=== PATIENT | female | born 1955 | race Caucasian/White ===

== ENCOUNTER 2018-08-25 14:26 | Emergency (ER) | payer BC, SELFPAY ==
--- NOTE | 2018-08-25 14:37 | NUR.NOTE ---
pt states that she developed a scratchy feeling in her that at approximately 0900 at which point she took some Benadryl because she thought she might be having an allergic reaction approximately 5 min after taking liquid Benadryl the PT vomited. pt is here because she wants to get checked out currently presents with no signs or symptoms of an allelic reaction or nausea
[2018-08-25 14:41] VITALS: BP 153/81; PULSE 82; RESP 15; TEMP 36.8; O2SAT 96
--- NOTE | 2018-08-25 15:50 | ED.GENADUL_ITS ---
Discharge Plan Disposition Patient Disposition: HOME Condition: Stable Discharge Details Chief Complaint: GenMedical Clinical Impression: Allergic reaction Primary Care Provider: Guevara Harris ED Provider: Ngoc Moore Home Meds and New Rx's Prescriptions: New prednisone 20 mg tablet 20 mg PO DAILY Qty: 12 RF: 0 amlodipine 5 mg tablet 5 mg PO DAILY Qty: 30 RF: 0 Continued pravastatin 20 mg Tablet 20 mg PO DAILY RF: 0 Discontinued lisinopril 10 mg Tablet 10 mg PO DAILY RF: 0 Discharge Instructions Instructions: General Allergic Reaction (ED) Additional Instructions: It is possible that your allergic reaction was due to something you ate. There is also a possibility that your allergic reaction is due to the lisinopril that you have been taking. The usual serious allergic reaction with lisinopril can occur at any point in time while taking it, and is usually tongue or lip swelling. It seems most likely that your allergic reaction was due to something you ate. However, due to the risk of an allergic reaction with lisinopril, I recommend that you stop taking it. We will start you on amlodipine for the time being. Call your primary care doctor on Monday morning to schedule follow-up appointment for reevaluation and to determine whether you should continue taking amlodipine or switch to another antihypertensive medication. Take Benadryl as needed and directed for any itching. Return immediately to the emergency department any worsening or new concerning symptoms. Discharge Data Discharge Date/Time-TO BE ENTERED AT DEPARTURE: 08/25/18 17:15 Discharge Physician: Ngoc Moore Medical Decision Making 1430 -- 62yo F with a history of hypertension and high cholesterol who presents with possible allergic reaction after eating breakfast at a local caf? 5 hours ago. She admits to a sensation of difficulty swallowing, nausea, shaking and dizziness. She took Benadryl and states her symptoms are 50-75% better. Vitals within normal limits. Patient appears nontoxic. Normal ENT exam. No drooling, no trismus, no submandibular swelling. Lungs clear to auscultation. Abdomen soft and nontender. Patient also has taken lisinopril for the past 30 years. She has no tongue or lip swelling, so this appears unlikely to be the source as her symptoms started after eating and does not appear c/w angioedema. Due to the concern of airway involvement if it is due to the lisinopril, patient is recommended to stop taking this. Will place an IV, bolus IV fluids, Solu-Medrol, Benadryl and will reassess. 1700 -- Patient reassessed and feels completely better. She denies any throat or respiratory symptoms. She is requesting to go home. Patient instructed to stop the lisinopril. Will give a prescription for amlodipine for her blood pressure. She is instructed to call her primary care doctor Monday morning to schedule a follow-up appointment for reevaluation and to discuss continued treatment of her hypertension. She states she has taken amlodipine in the past. She is instructed to drink plenty of fluids, take the steroids until finished and take benadryl as needed and directed for itching. She is instructed to return here immediately with any worsening symptoms. HPI General Mode of arrival: ambulatory . Date/Time Provider Initiated Documentation: 08/25/18 15:26 . Limitations to Documentation: no limitations . Information obtained by: patient . HPI Narrative: Patient is a 62-year-old female who presents the ED with a complaint of possible allergic reaction. She states she ate breakfast this morning approximately 5 hours ago and approximately 20 minutes later she felt like she was having a hard time swallowing. She states she went to a local pharmacy and discussed with the pharmacist there and they advised her to take Benadryl. She states she drank approximately 20 mL of children's Benadryl. She states she vomited shortly after taking this but she is unsure if any of it got absorbed. She states she ate eggs, haas, home fries and states she never had eaten at this cafe in [place] before. She states she also felt her body shaking and some nausea and dizziness. She states she feels approximately 50-75% better. She denies any shortness of breath or wheezing. She states she also takes lisinopril for the past 30 years but denies any tongue or lip swelling. She denies any vomiting or abdominal pain. Related Data Home Medications Medication Instructions Recorded Confirmed amlodipine 5 mg PO DAILY #30 tab 08/25/18 pravastatin 20 mg PO DAILY 08/25/18 08/25/18 prednisone 20 mg PO DAILY #12 tab 08/25/18 Previous Rx's Medication Instructions Recorded amlodipine 5 mg PO DAILY #30 tab 08/25/18 prednisone 20 mg PO DAILY #12 tab 08/25/18 Allergies Allergy/AdvReac Type Severity Reaction Status Date / Time No Known Allergies Allergy Unverified 08/25/18 14:42 General Stated Complaint: GenMedical JULIA: 4 Review of Systems Review of Systems All systems reviewed & are unremarkable except as noted in HPI and below Constitutional Reports as per HPI, Denies chills, Denies fever(s) and Reports other (body shaking) Eyes Denies blurry vision ENT Reports dizziness, Denies sore throat, Reports throat swelling and Denies tongue swelling Cardiovascular Denies chest pain and Denies dyspnea Respiratory Denies cough and Denies dyspnea Gastrointestinal Denies abdominal pain, Denies diarrhea, Reports nausea and Reports vomiting Genitourinary Denies hematuria and Denies dysuria Musculoskeletal Denies back pain and Denies numbness Integumentary/Breasts Denies lesions and Denies rash Neurologic Reports dizziness, Denies focal weakness and Denies numbness Allergic/Immunologic Reports throat swelling and Denies tongue swelling [facility] Medical History Hyperlipemia (Acute) HTN (hypertension) (Chronic) Surgical History History of bilateral tubal ligation (Acute) Social History Smoking/Tobacco Use Status: Never Alcohol Intake: current Alcohol Intake frequency: 0-2 drinks per day Drug use: Never Substance use type: does not use Do you feel safe at home: Yes Do you feel safe in your relationship?: Yes Exam Const General: cooperative, healthy appearing and no acute distress HENMT Head: normal to inspection Ears: hearing grossly normal bilaterally, external ears normal and TM's normal bilaterally General nose exam: external nose normal Face and sinus: normal facial exam Mouth: oral mucosae normal, tongue normal, no drooling and no trismus Teeth and gingiva: dentition normal Throat: posterior oropharynx normal Eyes General: appearance normal, both eyes and all related structures Pupils: PERRL EOM: EOM intact bilaterally Neck Neck: normal visual inspection and No submandibular swelling Lymphatic: no lymphadenopathy noted Chest Chest: normal inspection of the chest and no tenderness Resp Effort & Inspection: normal respiratory effort and able to speak in complete sentences Auscultation: clear to auscultation bilaterally Cardio Rate: regular rate Rhythm: regular rhythm GI Inspection: normal to inspection Palpation: soft, not firm, not rigid and nontender Auscultation: normal bowel sounds Skin General skin exam: no rashes or lesions noted Neuro General: alert, awake and oriented x3 Cognition: normal cognition Speech: speech normal Motor: muscle tone normal throughout Sensory Exam: no sensory deficits noted Extrem General: normal to inspection, full ROM and no edema Psych Appearance: grossly normal Mental Status: mental status grossly normal Speech and Movement: speech and movement normal Affect: normal affect Course Vital Signs Temperature 98.2 F 08/25/18 14:41 Pulse 82 08/25/18 14:41 Respiratory Rate 15 08/25/18 14:41 Blood Pressure 153/81 H 08/25/18 14:41 Pulse Oximetry 96 08/25/18 14:41 Temperature 98.2 F 08/25/18 14:41 Temperature Source Skin 08/25/18 14:41 Pulse 82 08/25/18 14:41 Respiratory Rate 15 08/25/18 14:41 Respiratory Effort 08/25/18 14:44 Blood Pressure 153/81 H 08/25/18 14:41 Blood Pressure Position Sitting 08/25/18 14:41 Pulse Oximetry 96 08/25/18 14:41 Oxygen Delivery Method Room Air 08/25/18 14:41 Oxygen Flow Rate 0 08/25/18 14:41 Pain Level 0 08/25/18 14:41
[2018-08-25] MEDS: diphenhydrAMINE 50 MG/ML VIAL 25 MG IVP (15:58)
[2018-08-25] MEDS: methylPREDNISolone SUCC 125 MG VIAL IVP (15:59)
[2018-08-25] MEDS: Normal Saline 1,000 ML 1000 ML IV (15:59)
== END 2018-08-25 17:15 | disposition home or self-care (01) ==
PROVIDERS: Emergency Provider Physician Assistant; PCP Physician Assistant
DX: R13.10 Dysphagia, unspecified (principal); R11.0 Nausea; R42 Dizziness and giddiness; I10 Essential (primary) hypertension
CPT/HCPCS: 96361; 96374; 96375; 99284; J1200; J2930

== ENCOUNTER 2019-08-01 10:01 | Outpatient (CLI) | payer BC, SELFPAY ==
[2019-08-01 13:20] LABS: Hemoglobin A1C 5.8 % (3.8-5.6)
[2019-08-01 13:28] LABS: CREATININE 0.56 mg/dL (0.55-1.02); Calculated LDL 158 mg/dL (<100); Cholesterol 235 mg/dL (<200); HDL Cholesterol 52 mg/dL (40-60); Potassium 4.5 mmol/L (3.5-5.1); TSH 2.04 uIU/mL (0.36-3.74); Triglyceride 129 mg/dL (<150)
== END 2019-08-01 10:21 ==
PROVIDERS: PCP Nurse Practitioner; Visit Provider Nurse Practitioner
DX: I10 Essential (primary) hypertension (principal); E78.5 Hyperlipidemia, unspecified; Z13.1 Encounter for screening for diabetes mellitus; R68.89 Other general symptoms and signs
CPT/HCPCS: 36415; 80061; 82565; 83036; 84132; 84443

== ENCOUNTER 2019-11-06 00:59 | Outpatient (CLI) | payer BC, SELFPAY ==
--- NOTE | 2019-11-06 07:45 | DI.MAMMO_ITS ---
EXAM: MG MAMMO SCREENING CLINICAL HISTORY: screening,z12.39 TECHNIQUE: Bilateral full field digital CC and MLO mammographic images were obtained with 3D tomosyn thesis and utilizing computer aided detection (CAD). COMPARISON: Available for comparison. FINDINGS: Masses/Architectural Distortion: None seen. Stable breast asymmetry in the upper-outer quadrant of th e left breast. Microcalcifications: No suspicious pleomorphic-type are seen. Stable calcifications seen in both sanju sts. Skin Thickening/Nipple Retraction: None. IMPRESSION: 1. No significant interval change with no specific features of malignancy noted. 2. Unless there is more urgent need, screening mammography is recommended, as per [place] [employer] guidelines. BI-RADS Category 2 - Benign Findings Breast Density - Category B - Scattered areas of fibroglandular density A negative radiographic report should not delay biopsy if a dominant or clinically suspicious mass is present. Up to ten percent of cancers are not identified on mammography. A negative report may reinforce clinical impression. Adenosis and dense breasts may obscure an underlying neoplasm. False positive reports average 6 to 10%. Patient will receive a letter notifying them of these results.
== END 2019-11-06 01:19 ==
PROVIDERS: PCP Nurse Practitioner; Visit Provider Nurse Practitioner
DX: Z12.31 Encounter for screening mammogram for malignant neoplasm of breast (principal); R92.1 Mammographic calcification found on diagnostic imaging of breast
CPT/HCPCS: 77063; 77067

== ENCOUNTER 2020-01-03 12:58 | Outpatient (REF) | payer BC, SELFPAY ==
[2020-01-03 13:30] LABS: Calculated LDL 81 mg/dL (<100); Cholesterol 160 mg/dL (<200); HDL Cholesterol 53 mg/dL (40-60); Triglyceride 133 mg/dL (<150)
== END 2020-01-03 13:18 ==
LOC: LBN 12:58
PROVIDERS: PCP Nurse Practitioner; Visit Provider Nurse Practitioner
DX: E78.5 Hyperlipidemia, unspecified (principal)
CPT/HCPCS: 80061

== ENCOUNTER 2021-03-01 03:21 | Outpatient (CLI) | payer BC, SELFPAY ==
[2021-03-01 13:20] LABS: CREATININE 0.7 mg/dL (0.55-1.02); Calculated LDL 80 mg/dL (<100); Cholesterol 154 mg/dL (<200); HDL Cholesterol 53 mg/dL (40-60); Triglyceride 106 mg/dL (<150)
== END 2021-03-01 03:22 | disposition home or self-care (01) ==
LOC: LOS 03:24
PROVIDERS: PCP Nurse Practitioner; Visit Provider Nurse Practitioner
DX: R73.03 Prediabetes (principal); I10 Essential (primary) hypertension; E78.5 Hyperlipidemia, unspecified
CPT/HCPCS: 36415; 80061; 82565; 83036; 84132

== ENCOUNTER 2021-03-26 00:37 | Outpatient (CLI) | payer BC, SELFPAY ==
--- NOTE | 2021-03-26 08:00 | DI.MAMMO_ITS ---
Exam(s) MAMMO SCREENING EXAM: MAMMO SCREENING CLINICAL HISTORY: screening, Z12.39 TECHNIQUE: Mammograms were interpreted according to the usual protocol including computer analysis w Selleration system, tomosynthesis and C-view imaging. COMPARISON: FINDINGS: The breasts are of moderate density with fairly symmetrical distribution fibroglandular tissue. Ther e are numerous macro and microcalcifications in the upper outer quadrant of the left breast. These a ppear unchanged comparison with prior examinations including October 2019. No new mass or clumped micro calcification seen. No other significant change. IMPRESSION: No specific evidence of malignancy at this time. I requested follow-up examination be obtained in 12 months to re-evaluate stable probably benign left breast macrocalcifications and microcalcifications .. BI-RADS Category 2 - Benign Findings Breast Density - Category B - Scattered areas of fibroglandular density
--- NOTE | 2021-03-26 08:00 | DI.DEXA_ITS ---
Exam(s) XR DEXA BONE DENSITY W/WO LEE ANN EXAM: XR DEXA BONE DENSITY W/WO LEE ANN CLINICAL HISTORY: screening, ASYMPTOMATIC MENOPAUSAL STATE, Z78.0 TECHNIQUE: COMPARISON: No exams were available for comparison FINDINGS: DEXA scan was performed according to the usual protocol. Please see the accompanying data sheets. F indings for left hip scanning are T-score 0.8 with left femoral neck T-score 0.2. Lumbar spine scanning shows T-score 1.0. Left forearm scanning shows T-score 1.4. IMPRESSION: The findings are consistent with normal bone density according to the WHO criteria. The lateral vertebral scanogram shows no evidence of a vertebral compression fracture. RADIATION DOSE DELIVERED: Total DLP
== END 2021-03-26 00:57 ==
PROVIDERS: PCP Nurse Practitioner; Visit Provider Nurse Practitioner
DX: Z12.31 Encounter for screening mammogram for malignant neoplasm of breast (principal); Z78.0 Asymptomatic menopausal state; Z13.820 Encounter for screening for osteoporosis; R92.0 Mammographic microcalcification found on diagnostic imaging of breast; M85.832 Other specified disorders of bone density and structure, left forearm
CPT/HCPCS: 77063; 77067; 77080

== ENCOUNTER 2022-06-16 04:04 | Outpatient (CLI) | payer MEDICARE, BC, SELFPAY ==
[2022-06-16 12:53] LABS: ALT 26 U/L (14-59); AST 23 U/L (15-37); Albumin 3.9 g/dL (3.4-5.0); Alkaline Phosphatase 60 U/L (46-116); Anion Gap 6.4 mmol/L (3-11); BUN 17 mg/dL (7-18); Bilirubin, Total 0.5 mg/dL (0.2-1.0); CO2 29.6 mmol/L (21.0-32.0); CREATININE 0.7 mg/dL (0.55-1.02); Calcium 9.1 mg/dL (8.5-10.1); Calculated LDL 82 mg/dL (<100); Chloride 102 mmol/L (98-107); Cholesterol 159 mg/dL (<200); Estimated GFR 95.92 (mL/min/1.73m2); Glucose 106 mg/dL (74-106); HDL Cholesterol 56 mg/dL (40-60); Potassium 4.3 mmol/L (3.5-5.1); Sodium 138 mmol/L (136-145); Total Protein 7.4 g/dL (6.4-8.2); Triglyceride 107 mg/dL (<150)
== END 2022-06-16 04:05 | disposition home or self-care (01) ==
LOC: LOS 04:04
PROVIDERS: PCP Nurse Practitioner Family; Visit Provider Nurse Practitioner Family
DX: I10 Essential (primary) hypertension (principal); E78.2 Mixed hyperlipidemia; R73.03 Prediabetes; E66.01 Morbid (severe) obesity due to excess calories
CPT/HCPCS: 36415; 80053; 80061; 83036

== ENCOUNTER 2022-06-20 07:48 | Outpatient (CLI) | payer MEDICARE, BC, SELFPAY ==
[2022-06-20 12:19] LABS: HCT 42.1 % (36.0-46.0); HGB 13.2 g/dL (11.2-15.7); MCH 31.1 pg (27.0-33.0); MCHC 31.4 % (32.0-36.0); MCV 99 fL (80-95); MPV 11.5 fL (8.0-11.0); Platelet Count 303 10^3/uL (130-400); RBC 4.25 10^6/uL (3.93-5.22); RDW-SD 47.4 fL; WBC 7.16 10^3/uL (4.4-10.8)
[2022-06-20 12:24] LABS: ESR 16 mm/hr (0-30)
[2022-06-20 12:54] LABS: Ferritin 122 ng/mL (8-252)
[2022-06-20 13:02] LABS: C-Reactive Protein 0.21 mg/dL (0.0-0.3)
[2022-06-20 13:40] LABS: Vitamin D 25 Total 11.7 ng/mL (30-100)
[2022-06-21 14:49] LABS: ANA Interpretation Positive (Negative); ANA Titer Pattern 1:160 Homogeneous
== END 2022-06-20 07:49 | disposition home or self-care (01) ==
LOC: LOS 07:49
PROVIDERS: PCP Nurse Practitioner Family; Referring Provider Nurse Practitioner Family; Visit Provider Nurse Practitioner Family
DX: R21 Rash and other nonspecific skin eruption (principal); E55.9 Vitamin D deficiency, unspecified; R73.03 Prediabetes; M79.18 Myalgia, other site; I10 Essential (primary) hypertension; E78.5 Hyperlipidemia, unspecified; G25.81 Restless legs syndrome; E66.01 Morbid (severe) obesity due to excess calories; R71.8 Other abnormality of red blood cells
CPT/HCPCS: 36415; 82306; 85027; 85652; 82728; 86038; 86140

== ENCOUNTER 2022-07-25 02:43 | Outpatient (CLI) | payer MEDICARE, BC, SELFPAY ==
[2022-07-25 13:08] LABS: Iron 89 ug/dL (50-170)
[2022-07-25 13:14] LABS: Vitamin D 25 Total 19.5 ng/mL (30-100)
[2022-07-25 13:25] LABS: Folate 13.9 ng/mL (8.6-20.0); Vitamin B12 306 pg/mL (193-986)
== END 2022-07-25 02:44 | disposition home or self-care (01) ==
LOC: LOS 02:43
PROVIDERS: PCP Nurse Practitioner Family; Visit Provider Nurse Practitioner Family
DX: E55.9 Vitamin D deficiency, unspecified (principal); D75.89 Other specified diseases of blood and blood-forming organs; R71.8 Other abnormality of red blood cells; G25.81 Restless legs syndrome; G25.89 Other specified extrapyramidal and movement disorders
CPT/HCPCS: 36415; 82306; 82607; 82746; 83540

== ENCOUNTER 2022-07-26 09:20 | Outpatient (CLI) | payer MEDICARE, BC, SELFPAY ==
--- NOTE | 2022-07-26 08:10 | DI.MAMMO_ITS ---
Exam(s) MAMMO SCREENING EXAM: MAMMO SCREENING CLINICAL HISTORY: screening,Z12.39. TECHNIQUE: Bilateral full field digital CC and MLO mammographic images were obtained with 3D tomosyn thesis and utilizing computer aided detection (CAD). COMPARISON: Prior mammograms were reviewed. FINDINGS: There has been no significant change in the appearance and distribution of the fibroglandular tissue. Benign-appearing asymmetric densities in the right breast appear unchanged from prior studies on 3D i maging. In addition, calcifications bilaterally, most prominent again in the upper-outer quadrant of the left breast remain unchanged from prior studies. There are no new spiculated masses nor malignant appearing microcalcification groups. There is no significant architectural distortion nor skin thickening-retraction. IMPRESSION: Stable benign-appearing findings. No radiographic evidence of malignancy. BI-RADS Category 2 - Benign Findings Breast Density - Category B - Scattered areas of fibroglandular density Breast density Category C or D implies that the patient has dense breast tissue. Dense breast tissue can make it harder to find cancer on a mammogram. Dense breast tissue is also associated with an incr eased risk of breast cancer. This information about the result of the mammogram report was provided to the patient to raise their awareness. Use this report when you speak with the patient about their risks for breast cancer, which includes their family history. At that time, you may recommend additional screening tests (Ultrasoun d or MRI) as these tests may add significant information. A negative radiographic report should not delay biopsy if a dominant or clinically suspicious mass is present. Up to ten percent of cancers are not identified on mammography. A negative report may reinforce clinical impression. Adenosis and dense breasts may obscure an underlying neoplasm. False positive reports average 6 to 10%. Patient will receive a letter notifying them of these results.
== END 2022-07-26 09:40 ==
LOC: DI 09:21
PROVIDERS: PCP Nurse Practitioner Family; Visit Provider Nurse Practitioner Family
DX: R73.03 Prediabetes (principal); Z12.31 Encounter for screening mammogram for malignant neoplasm of breast
CPT/HCPCS: 77063; 77067

== ENCOUNTER 2022-08-29 03:27 | Outpatient (CLI) | payer MEDICARE, BC, SELFPAY ==
[2022-08-29 12:59] LABS: Vitamin D 25 Total 22.7 ng/mL (30-100)
== END 2022-08-29 03:28 | disposition home or self-care (01) ==
LOC: LOS 03:27
PROVIDERS: PCP Nurse Practitioner Family; Visit Provider Nurse Practitioner Family
DX: E55.9 Vitamin D deficiency, unspecified (principal)
CPT/HCPCS: 36415; 82306

== ENCOUNTER 2022-11-03 03:10 | Outpatient (CLI) | payer MEDICARE, BC, SELFPAY ==
[2022-11-03 12:56] LABS: Vitamin D 25 Total 32.6 ng/mL (30-100)
== END 2022-11-03 03:11 | disposition home or self-care (01) ==
LOC: LOS 03:10
PROVIDERS: PCP Nurse Practitioner Family; Visit Provider Nurse Practitioner Family
DX: E55.9 Vitamin D deficiency, unspecified (principal)
CPT/HCPCS: 36415; 82306

== ENCOUNTER 2022-12-20 08:25 | Outpatient (CLI) | payer MEDICARE, BC, SELFPAY ==
[2022-12-20 13:29] LABS: Vitamin D 25 Total 26.1 ng/mL (30-100)
== END 2022-12-20 08:26 | disposition home or self-care (01) ==
LOC: LOS 08:25
PROVIDERS: PCP Nurse Practitioner Family; Referring Provider Nurse Practitioner Family; Visit Provider Nurse Practitioner Family
DX: E55.9 Vitamin D deficiency, unspecified (principal)
CPT/HCPCS: 36415; 82306

== ENCOUNTER 2023-04-05 01:18 | Outpatient (CLI) | payer MEDICARE, BC, SELFPAY ==
[2023-04-05 13:28] LABS: Vitamin D 25 Total 27.1 ng/mL (30-100)
== END 2023-04-05 01:19 | disposition home or self-care (01) ==
LOC: LOS 01:18
PROVIDERS: PCP Nurse Practitioner Family; Visit Provider Nurse Practitioner Family
DX: E55.9 Vitamin D deficiency, unspecified (principal)
CPT/HCPCS: 36415; 82306

== ENCOUNTER 2023-06-23 08:32 | Outpatient (CLI) | payer MEDICARE, BC, SELFPAY ==
[2023-06-23 12:43] LABS: ALT 30 U/L (14-59); AST 19 U/L (15-37); Albumin 3.9 g/dL (3.4-5.0); Alkaline Phosphatase 38 U/L (46-116); Anion Gap 9.9 mmol/L (3-11); BUN 17 mg/dL (7-18); Bilirubin, Total 0.5 mg/dL (0.2-1.0); CO2 27.1 mmol/L (21.0-32.0); CREATININE 0.6 mg/dL (0.55-1.02); Calcium 8.9 mg/dL (8.5-10.1); Calculated LDL 78 mg/dL (<100); Chloride 104 mmol/L (98-107); Cholesterol 159 mg/dL (<200); Estimated GFR 98.93 (mL/min/1.73m2); Glucose 104 mg/dL (74-106); HDL Cholesterol 58 mg/dL (40-60); Sodium 141 mmol/L (136-145); Total Protein 7.5 g/dL (6.4-8.2); Triglyceride 118 mg/dL (<150)
[2023-06-23 13:01] LABS: Vitamin D 25 Total 27.3 ng/mL (30-100)
== END 2023-06-23 08:33 | disposition home or self-care (01) ==
LOC: LOS 08:32
PROVIDERS: PCP Nurse Practitioner Family; Referring Provider Nurse Practitioner Family; Visit Provider Nurse Practitioner Family
DX: E78.5 Hyperlipidemia, unspecified (principal); R73.03 Prediabetes; E55.9 Vitamin D deficiency, unspecified
CPT/HCPCS: 36415; 80053; 80061; 82306; 83036

== ENCOUNTER → 2023-07-28 00:18 | Outpatient (CLI) | payer MEDICARE, BC, SELFPAY ==
--- NOTE | 2023-07-28 08:05 | DI.MAMMO_ITS ---
Exam(s) MAMMO SCREENING EXAM: MAMMO SCREENING CLINICAL HISTORY: screening,z12.39 TECHNIQUE: Bilateral full field digital CC and MLO mammographic images were obtained with 3D tomosyn thesis and utilizing computer aided detection (CAD). COMPARISON: Available for comparison. FINDINGS: Masses/Architectural Distortion: There are stable areas of breast asymmetry in the upper outer quadra nt of the left breast. Stable nodular densities are seen in both breasts. No new nodular areas or a reas of architectural distortion are seen. Microcalcifications: No suspicious pleomorphic-type are seen. Skin Thickening/Nipple Retraction: None. IMPRESSION: 1. No significant interval change with no specific features of malignancy noted. 2. Unless there is more urgent need, screening mammography is recommended, as per [place] [employer] guidelines. BI-RADS Category 2 - Benign Findings Breast Density - Category B - Scattered areas of fibroglandular density Breast density category C or D implies that the patient has dense breast tissue. Dense breast tissue is very common and is not abnormal but dense breast tissue can make it harder to find cancer on a ma mmogram. Also, dense breast tissue may increase their breast cancer risk. This information about the result of the mammogram report was provided to the patient to raise their awareness. Use this report when you speak with the patient about their risks for breast cancer, which includes their family hist ory. At that time, you may recommend for more screening tests (Ultrasound or MRI) as they might be us eful based on their risk. A negative radiographic report should not delay biopsy if a dominant or clinically suspicious mass is present. Up to ten percent of cancers are not identified on mammography. A negative report may reinforce clinical impression. Adenosis and dense breasts may obscure an underlying neoplasm. False positive reports average 6 to 10%. Patient will receive a letter notifying them of these results.
== END ==
PROVIDERS: PCP Nurse Practitioner Family; Visit Provider Nurse Practitioner Family
DX: Z12.31 Encounter for screening mammogram for malignant neoplasm of breast (principal)
CPT/HCPCS: 77063; 77067

== ENCOUNTER 2023-12-29 18:51 | Outpatient (REF) | payer MEDICARE, BC, SELFPAY ==
[2023-12-29 13:04] LABS: HCT 44.4 % (36.0-46.0); HGB 14.1 g/dL (11.2-15.7); MCH 31.4 pg (27.0-33.0); MCHC 31.8 % (32.0-36.0); MCV 99 fL (80-95); MPV 11.5 fL (8.0-11.0); Platelet Count 319 10^3/uL (130-400); RBC 4.49 10^6/uL (3.93-5.22); RDW 12.9 % (11.7-14.6); RDW-SD 47.3 fL; WBC 5.65 10^3/uL (4.4-10.8)
== END 2023-12-29 18:52 | disposition home or self-care (01) ==
LOC: LBN 18:51
PROVIDERS: PCP Nurse Practitioner Family; Visit Provider Nurse Practitioner Family
DX: R53.83 Other fatigue (principal); R73.03 Prediabetes
CPT/HCPCS: 85027; 83036; 84443

== ENCOUNTER 2024-06-25 10:28 | Outpatient (CLI) | payer MEDICARE, SELFPAY ==
--- NOTE | 2024-06-25 10:15 | RT.EKG_ITS ---
APPROVED REPORT Exam: Resting ECG Reason for Exam: chest pain Patient Location: O HR:72 bpm ECG Measurements Heart Rate [address] 157 P 54 QRSd 93 QRS 8 QT 391 T 33 QTc 428 Conclusion Sinus rhythm...normal P axis, V-rate 50- 99 Normal Electrocardiogram
== END 2024-06-25 10:29 | disposition home or self-care (01) ==
LOC: DI.CM 10:37
PROVIDERS: PCP Nurse Practitioner Family; Visit Provider Nurse Practitioner Family
DX: R06.02 Shortness of breath (principal); R07.9 Chest pain, unspecified
CPT/HCPCS: 93010

== ENCOUNTER 2024-06-28 00:46 | Outpatient (CLI) | payer MEDICARE, SELFPAY ==
[2024-06-28 10:13] LABS: HCT 43.5 % (36.0-46.0); HGB 13.8 g/dL (11.2-15.7); MCH 31.2 pg (27.0-33.0); MCHC 31.7 % (32.0-36.0); MCV 98 fL (80-95); MPV 10.8 fL (8.0-11.0); Platelet Count 314 10^3/uL (130-400); RBC 4.42 10^6/uL (3.93-5.22); RDW 12.8 % (11.7-14.6); RDW-SD 46.2 fL; WBC 7.68 10^3/uL (4.4-10.8)
[2024-06-28 10:21] LABS: Hemoglobin A1C 6.1 % (<5.7)
[2024-06-28 10:57] LABS: ALT 26 U/L (14-59); AST 18 U/L (15-37); Albumin 3.8 g/dL (3.4-5.0); Alkaline Phosphatase 61 U/L (46-116); Anion Gap 7.3 mmol/L (3-11); BUN 15 mg/dL (7-18); CO2 30.7 mmol/L (21.0-32.0); CREATININE 0.8 mg/dL (0.55-1.02); Calcium 9.2 mg/dL (8.5-10.1); Chloride 105 mmol/L (98-107); Estimated GFR 80.71 (mL/min/1.73m2); Glucose 107 mg/dL (74-106); Potassium 3.8 mmol/L (3.5-5.1); Sodium 143 mmol/L (136-145); Total Protein 7.6 g/dL (6.4-8.2)
[2024-06-28 22:25] LABS: HIV-1/2 Ag & Ab Screen Negative (Negative)
[2024-06-28 22:27] LABS: Hepatitis C Ab w Rflx HCV PCR Negative (Negative)
[2024-06-28 23:19] LABS: HBs Antibody, Quant <3.1 mIU/mL (See Note); Hep B Surface Ab Negative (See Note); Hepatitis B Core Antibody Negative (Negative); Hepatitis B Surface Antigen Negative (Negative)
[2024-07-01 10:38] LABS: Lyme Ab w Rflx to Lyme Confirm Negative (Negative)
[2024-07-01 17:26] LABS: Anaplasma phagocytophilum Negative (Negative); B. miyamotoi PCR Negative (Negative); Babesia divergens/MO-1 Negative (Negative); Babesia duncani Negative (Negative); Babesia microti Negative (Negative); Ehrlichia chaffeensis Negative (Negative); Ehrlichia ewingii/canis Negative (Negative); Ehrlichia muris eauclairensis Negative (Negative)
[2024-07-03 15:48] LABS: Apolipoprotein B, Serum 75 mg/dL (48-124); Beta VLDL Cholesterol Not Detected mg/dL (<15); Beta VLDL Triglycerides Not Detected mg/dL (<15); Cholesterol, Total, CDC 179 mg/dL; Chylomicron Cholesterol Not Detected; Chylomicron Triglycerides Not Detected; HDL Cholesterol, CDC 55 mg/dL (>=50); LDL Cholesterol 97 mg/dL; LDL Triglycerides 48 mg/dL (<=50); Lp(a) Cholesterol <5 mg/dL (<5); LpX Not detected; Triglycerides, CDC 168 mg/dL; VLDL Cholesterol 27 mg/dL (<30); VLDL Triglycerides 89 mg/dL (<120)
== END 2024-06-28 00:47 | disposition home or self-care (01) ==
PROVIDERS: PCP Nurse Practitioner Family; Visit Provider Nurse Practitioner Family
DX: E78.2 Mixed hyperlipidemia; E78.5 Hyperlipidemia, unspecified; R73.03 Prediabetes; D75.89 Other specified diseases of blood and blood-forming organs; Z11.59 Encounter for screening for other viral diseases; E55.9 Vitamin D deficiency, unspecified; Z11.4 Encounter for screening for human immunodeficiency virus [HIV]
CPT/HCPCS: 36415; 80053; 80061; 82306; 85027; 86704; 86706; 86803; 87340; 87389; 87798; 82172; 82664; 83036; 86618

== ENCOUNTER 2024-07-02 12:32 | Outpatient (REF) | payer MEDICARE, SELFPAY ==
--- NOTE | 2024-07-02 16:00 | SKI_PTH ---
PATIENT: Mirella Herron LOC: [facility] U#:[id number] AGE/SX: 68/F ROOM: RE07/02/[address]: Joseph Prasad DNP : 1955 BED: DIS: 07/02/2024 SPEC #: [id number] RECD: 07/03/24 12:37 STATUS: JOEY DODSON #: [id number] EVAN: 07/02/24 16:[address]: Joseph Wild DEPT: Surgical Specimen RECD BY: Loli Taylor Tissues: 1 - SKIN BIOPSY(SHAVE/PUNCH) Procedures: GROSS AND MICRO LEVEL 3 Comments: [id number]
== END 2024-07-02 12:33 | disposition home or self-care (01) ==
LOC: LBN 12:32
PROVIDERS: PCP Nurse Practitioner Family; Visit Provider Nurse Practitioner Family
DX: D17.23 Benign lipomatous neoplasm of skin and subcutaneous tissue of right leg (principal)
CPT/HCPCS: 88304; 88305

== ENCOUNTER 2024-08-15 01:06 | Outpatient (CLI) | payer MEDICARE, SELFPAY ==
--- NOTE | 2024-08-15 07:45 | DI.DEXA_ITS ---
Exam(s) XR DEXA BONE DENSITY W/WO LEE ANN EXAM: XR DEXA BONE DENSITY W/WO LEE ANN CLINICAL HISTORY: screening for osteoporosis in postmenopausal status,z78.0 TECHNIQUE: COMPARISON: No exams were available for comparison FINDINGS: Lateral Spine Image: Unremarkable. No compression deformities identified. Left hip: Total T-Score: 0.3 Total Z-Score: 1.7 T- and Z-scores: Within normal limits. Lumbar Spine: Total T-Score: 0.8 Total Z-Score: 2.7 T- and Z-scores: Within normal limits. IMPRESSION: No evidence of osteoporosis.
--- NOTE | 2024-08-15 15:07 | DI.MAMMO_ITS ---
Exam(s) MAMMO SCREENING EXAM: MAMMO SCREENING CLINICAL HISTORY: screening,z12.39 TECHNIQUE: Mammograms were interpreted according to the usual protocol including computer analysis w [employer] CAD system, tomosynthesis and C-view imaging. COMPARISON: 2014 through 2023 FINDINGS: The breasts are composed of scattered fibroglandular densities, Breast Density category B. No suspicious masses or suspicious microcalcifications are seen. Benign calcifications are again not ed bilaterally No skin thickening or abnormal axillary lymph nodes are seen. There has been no significant change from prior exams. IMPRESSION: BI-RADS Category 2 - Benign Findings Yearly screening mammography is recommended. Breast Density - Category B, scattered fibroglandular densities. A negative radiographic report should not delay biopsy if a dominant or clinically suspicious mass is present. Up to ten percent of cancers are not identified on mammography. A negative report may reinforce clinical impression. Adenosis and dense breasts may obscure an underlying neoplasm. False positive reports average 6 to 10%. Patient will receive a letter notifying them of these results.
== END 2024-08-15 01:26 ==
LOC: DI 01:07
PROVIDERS: PCP Nurse Practitioner Family; Visit Provider Nurse Practitioner Family
DX: Z78.0 Asymptomatic menopausal state (principal); Z12.31 Encounter for screening mammogram for malignant neoplasm of breast; Z13.820 Encounter for screening for osteoporosis
CPT/HCPCS: 77063; 77067; 77080

== ENCOUNTER → 2024-08-29 09:15 | Outpatient (BNVA) | payer MEDICARE, SELFPAY | PROVIDERS: PCP Nurse Practitioner Family; Referring Provider Nurse Practitioner Family; Visit Provider Physical Therapy Assistant | DX: Z12.11 Encounter for screening for malignant neoplasm of colon (principal) ==

== ENCOUNTER 2024-09-27 07:26 | Day surgery (SDC) | payer MEDICARE, SELFPAY ==
[2024-09-27 07:43] VITALS: BP 172/81; PULSE 82; RESP 18; TEMP 37; O2SAT 96
[2024-09-27] MEDS: Lactated Ringers 1,000 ML 80 ML IV (08:02)
--- NOTE | 2024-09-27 09:20 | W.ANESPRE ---
General Info Date of Service Date Performed: 09/27/24 Height: 4 ft 11.75 in Weight: 105.9 kg Body Mass Index (BMI): 45.9 Surgical Procedure: Operation Date: 09/27/24 09:35 Proposed Procedure Side Surgeon p Colonoscopy Terence Morrow MD Actual Procedure Side Surgeon p Colonoscopy Terence Morrow MD Pre-Op Diagnosis Post-Op Diagnosis Screening Colonoscopy Meds Allergies and Home Medications Allergies Allergy/AdvReac Type Severity Reaction Status Date / Time No Known Allergies Allergy Verified 09/27/24 07:40 Home Medication ?Medication ?Instructions ?Recorded acetaminophen 650 mg 1,300 mg PO Q8H 08/01/19 tablet,extended release (Arthritis Pain Relief (acetaminophen) ER) clobetasol 0.05 % topical ointment 1 applic topical PRN 08/01/19 latanoprost 0.005 % eye drops 1 drp ophthalmic (eye) QPM 08/01/19 cholecalciferol (vitamin D3) 50 2,000 unit PO DAILY #90 caps 11/11/22 mcg (2,000 unit) capsule clobetasol 0.05 % topical cream 1 applic topical BID #60 grams 07/19/24 estradiol 0.01% (0.1 mg/gram) 0.5 g vaginal .COMPLEX #42.5 grams 07/24/24 vaginal cream amlodipine 10 mg tablet 10 mg PO DAILY #90 tabs 08/21/24 atorvastatin 20 mg tablet 20 mg PO DAILY #90 tabs 08/21/24 lisinopril 40 mg tablet 40 mg PO DAILY #90 tabs 08/21/24 bisacodyl 5 mg tablet,delayed 5 mg PO ONCE #4 tabs 08/29/24 release (Dulcolax (bisacodyl)) polyethylene glycol 3350 17 17 g PO ONCE #238 grams 08/29/24 gram/dose oral powder magnesium 200 mg tablet 200 mg PO DAILY 09/27/24 multivitamin 1 tab PO DAILY 09/27/24 Current Visit Medications: Current Medications Generic Name Dose Route Start Last Admin Trade Name Freq PRN Reason Stop Dose Admin Ringer's Solution 1,000 mls @ 80 mls/hr 09/27/24 06:00 09/27/24 08:02 IV 09/27/24 23:59 80 mls/hr INFUSION EMANUEL Administration IV Miscellaneous Supplies 1 each 09/27/24 06:00 Iv Access IV 09/27/24 23:59 DIRECTED EMANUEL Sodium Chloride 0 ml 09/27/24 06:00 Normal Saline Flush 10 Ml Syr IV 09/27/24 23:59 PRN PRN Sodium Chloride 0 ml 09/27/24 06:00 Normal Saline 10 Ml Vial IJ 09/27/24 23:59 DIRECTED PRN Sterile Water 0 ml 09/27/24 06:00 Water,Injection,Sterile 10 Ml Vial IJ 09/27/24 23:59 DIRECTED PRN PFSH Active Problems Active Problems: Problem Status Onset Code Well woman exam with routine gynecological exam Acute Z01.419 Skin yeast infection Acute B37.2 Arthralgia Acute M25.50 Fatigue Acute R53.83 Snoring Acute R06.83 Atrophic vaginitis Acute N95.2 Shortness of breath on exertion Acute R06.02 Macrocytosis without anemia Acute D75.89 Vitamin D deficiency Acute E55.9 Restless legs Acute G25.81 Skin lesion Acute L98.9 Facial rash Acute R21 Skin tag Acute L91.8 Dry skin dermatitis Acute L85.3 Pre-diabetes Acute R73.03 Tinnitus Acute H93.19 Osteoarthritis Chronic M19.90 Morbid (severe) obesity due to excess calories Acute E66.01 HTN (hypertension) Chronic I10 Hyperlipemia Acute E78.5 Surgical History Surgical History History of bilateral tubal ligation Tobacco Smoking/Tobacco Use Status: Never Passive smoking exposure: No Second hand exposure: Yes Alcohol Alcohol Intake: current Alcohol intake frequency: a few times a month Alcohol type: beer Substance Use Substance use: Never Substance use type: does not use Vital Signs and Lab Results Vital Signs Most Recent Vital Signs in EMR: Most Recent Vital Signs Temp Pulse Resp BP Pulse Ox 37.0 C 82 18 172/81 H 96 09/27/24 07:43 09/27/24 07:43 09/27/24 07:43 09/27/24 07:43 09/27/24 07:43 Lab Results Blood Type / Crossmatch: No Data to Display Complete Blood Count: No Data to Display Complete Metabolic Panel: No Data to Display Liver Function Panel: No Data to Display Coagulation Panel: No Data to Display Cardiac Panel: No Data to Display Arterial Blood Gas: No Data to Display Venous Blood Gas: No Data to Display Pancreas Panel: No Data to Display Thyroid Panel: No Data to Display Infectious Disease: No Data to Display Blood Cultures: No Data to Display Toxicology Panel: No Data to Display Imaging and Studies Imaging and Studies Study information below may be from another EMR and interpreted by another provider. Please see original notes in EMR for more complete details. EKG Summary: 06/25/24: Exam: Resting ECG Reason for Exam: chest pain Patient Location: O HR:72 bpm ECG Measurements Heart Rate 72 AXIS NE 157 P 54 QRSd 93 QRS 8 QT 391 T33 QTc 428 Conclusion Sinus rhythm...normal P axis, V-rate 50- 99 Normal Electrocardiogram Anesthesia Assessment and Plan Anesthesia History Personal History: No History of Anesthesia Complications Family History: No Family History of Anesthesia Complications Exercise Tolerance Exercise Tolerance: Metabolic Equivalents>4 Cardiac & Pulmonary Exam Cardiac Exam: Normal S1/S2 Heart Sounds Pulmonary Exam: Clear Bilateral Breath Sounds Implantable Cardiac Device Does patient have a Pacemaker or an ICD?: No Airway Exam Known Difficult Airway: No Mallampati Class: 2 Mouth Opening: Normal (> 3cm) Thyromental Distance: Greater than 3 cm Neck Range of Motion: Full ROM Neck Circumference: Thick Teeth Condition: Removable Dentures/Plates Lower ASA Classification ASA Score: ASA 3 Emergency Case?: No NPO Status NPO Status: NPO Clears >2 hours, Solids >8 hours Anesthesia Plan Resuscitation Status: Full Code Anesthesia Technique: General Anesthesia Airway Planned: Natural Airway Monitors Used: Standard Monitors Preoperative Comments:: 1st Screening colo
--- NOTE | 2024-09-27 09:49 | W.COLOREPORT ---
Date of service: 09/27/24 Time of Service: 09:49 Colonoscopy Report Procedure Description: PROCEDURES PERFORMED: 1. Colonoscopy with cold forceps polypectomy x2 PREOPERATIVE DIAGNOSIS: Screening colonoscopy POSTOPERATIVE DIAGNOSIS: Colon polyps SURGEON: Kj Morrow MD INDICATION for procedure: The patient is a 69-year-old woman overdue for her first screening colonoscopy. No family history of colon cancer. No symptoms. FINDINGS: In the cecum there was a small 2-3 mm sessile polyp which I removed with cold forceps technique. Normal terminal ileum. No other colon polyps. No obvious diverticular disease. In the rectum a small 2-3 mm sessile polyp was removed with cold forceps technique. No obvious or significant hemorrhoid disease. SURVEILLANCE interval/FOLLOW-UP: Depending the path results of the polyps. Probably a 10-year repeat colonoscopy is acceptable. SPECIMENS: yes EBL: Minimal COMPLICATIONS: None QUALITY of prep: Excellent Procedure in detail: The patient gave written consent and was in agreement with the indications, the potential risks as well as the benefits of the procedure. They were taken to the endoscopy suite and laid in the left lateral decubitus position. A timeout was performed and anesthesia was administered which was tolerated well. I started the procedure. Digital rectal and visual examination was performed and grossly within normal limits. A well-lubricated flexible colonoscope was then introduced and passed without any notable difficulty all the way to the cecum identified by the ileocecal valve and the appendiceal orifice. The terminal ileum was intubated and looked normal. The scope was then slowly withdrawn with the above-noted findings. The patient tolerated the procedure well and was taken to the PACU in hemodynamically stable condition.
--- NOTE | 2024-09-27 09:49 | W.PM.DSUDISC ---
Date of service: 09/27/24 Discharge Plan Disposition Patient Disposition: Home Discharge Details Attending Provider: Terence Morrow Primary Care Provider: Joseph Wild Home Meds and New Rx's Prescriptions: No Action latanoprost 0.005 % drops 1 drp OP QPM clobetasol 0.05 % ointment 1 applic TP PRN acetaminophen [Arthritis Pain Relief (acetam)] 650 mg tablet extended release 1,300 mg PO Q8H clobetasol 0.05 % cream 1 applic topical BID Qty: 60 3RF Rx Instructions: Apply a pea-sized amount twice daily bisacodyl [Dulcolax (bisacodyl)] 5 mg tablet,delayed release (DR/EC) 5 mg PO ONCE Qty: 4 0RF Rx Instructions: Take per colonoscopy instructions provided by ordering providers office polyethylene glycol 3350 17 gram/dose powder 17 g PO ONCE Qty: 238 0RF Rx Instructions: Take per colonoscopy instructions provided by ordering providers office cholecalciferol (vitamin D3) 50 mcg (2,000 unit) capsule 2,000 unit PO DAILY Qty: 90 4RF Rx Instructions: Take 1 daily after the 8 weeks of the 50,000unit dose estradiol 0.01 % (0.1 mg/gram) cream 0.5 g vaginal .COMPLEX Qty: 42.5 4RF Rx Instructions: 0.5 grams vaginally 3x/week; 1 times daily for one week, then decrease to 2-3 times per week lisinopril 40 mg tablet 40 mg PO DAILY Qty: 90 3RF atorvastatin 20 mg tablet 20 mg PO DAILY Qty: 90 3RF amlodipine 10 mg tablet 10 mg PO DAILY Qty: 90 3RF magnesium 200 mg tablet 200 mg PO DAILY multivitamin Tablet 1 tab PO DAILY Discharge Instructions Additional Instructions: FINDINGS: A couple of very tiny polyps were found which are nothing to worry about. They did get removed and they will get tested but they are probably not the kind of polyp that is concerning anyway. I suspect that you can do another colonoscopy in 10 years. We will call and confirm that with you after reviewing the polyps in a week or so. Activity:: Activity as Tolerated Diet:: As Tolerated Discharge Orders Discharge Orders: Discharge Order (Routine); Ordered 09/27/24 Ordered By: Terence Morrow
[2024-09-27 09:56] VITALS: BMI 45.9
--- NOTE | 2024-09-27 10:07 | BOWEL_PTH ---
PATIENT: Mirella Herron LOC: [facility] U#:[id number] AGE/SX: 69/F ROOM: RE09/27/[address]: Terence Morrow : 1955 BED: DIS: 09/27/2024 SPEC #: [id number] RECD: 09/27/24 11:44 STATUS: JOEY RE #: [id number] EVAN: 09/27/24 10:[address]: Terence Morrow DEPT: Surgical Specimen RECD BY: Loli Taylor ENTERED: 09/27/24 11:49 SP TYPE: Bowel OTHR DR: Joseph Prasad DNP Tissues: 1 - BIOPSY BOWEL 2 - BIOPSY BOWEL Procedures: GROSS AND MICRO LEVEL 4 IMMUNOPEROXIDASE STAIN Comments: [id number]
[2024-09-27 10:21] VITALS: BP 145/87; PULSE 82; RESP 16; TEMP 36.7; O2SAT 95
--- NOTE | 2024-09-27 10:43 | W.ANESPOSTOP ---
Postoperative Evaluation Date, Time and Location Date Performed: 09/27/24 Time Performed: 10:21 Patient Location: Day [facility] Unit Vital Signs Most Recent Imported Vital Signs: Most Recent Vital Signs Temp Pulse Resp BP Pulse Ox 36.7 C 82 16 145/87 H 95 09/27/24 10:21 09/27/24 10:21 09/27/24 10:21 09/27/24 10:21 09/27/24 10:21 Pain Score Most Recent Pain Score: Most Recent Pain Score Pain Level 0 09/27/24 10:21 Assessment Mental Status: Awake (Alert & Oriented to Patient Baseline) Airway and Respiratory Function: Patent airway with normal (patient baseline) respiratory exam Cardiovascular Function: Hemodynamically Stable Hydration Status: Adequately Hydrated Nausea & Vomiting: No Nausea or Vomiting Pain: Pt. Denies Any Pain Peripheral Nerve Block: Patient did not receive a nerve block
[2024-09-27 10:47] VITALS: BP 180/80; PULSE 75; RESP 16; TEMP 37.1; O2SAT 95
== END 2024-09-27 11:05 | disposition home or self-care (01) ==
PROVIDERS: PCP Nurse Practitioner Family; Visit Provider Student in an Organized Health Care Education/Training Program
PROC: 0DJD8ZZ Inspection of Lower Intestinal Tract, Via Natural or Artificial Opening Endoscopic (ICD-10-PCS; CPT 45378; principal; 2024-09-27 09:30)
DX: Z12.11 Encounter for screening for malignant neoplasm of colon (principal); K63.5 Polyp of colon; R73.03 Prediabetes; I10 Essential (primary) hypertension; D12.8 Benign neoplasm of rectum
CPT/HCPCS: 45380; 88305; 88361; J2003; J2704

== ENCOUNTER 2025-01-13 11:02 | Outpatient (CLI) | payer MEDICARE, SELFPAY ==
[2025-01-14 10:26] LABS: Lyme Ab w Rflx to Lyme Confirm Negative (Negative)
[2025-01-15 21:52] LABS: B. miyamotoi PCR Negative (Negative); Babesia divergens/MO-1 Negative (Negative); Ehrlichia muris eauclairensis Negative (Negative)
== END 2025-01-13 11:03 | disposition home or self-care (01) ==
PROVIDERS: PCP Nurse Practitioner Family; Visit Provider Nurse Practitioner Family
DX: R21 Rash and other nonspecific skin eruption (principal)
CPT/HCPCS: 36415; 87798; 86618

== ENCOUNTER → 2025-05-21 00:11 | Outpatient (CLI) | payer MEDICARE, SELFPAY ==
--- NOTE | 2025-05-21 11:58 | DI.US_ITS ---
Exam(s) US PELVIS TRANSVAGINAL EXAM: US PELVIS TRANSVAGINAL CLINICAL HISTORY: Check endometrial stripe N95.0POSTMENOPAUSAL BLEEDING. TECHNIQUE: Transabdominal and transvaginal pelvic ultrasound was performed using standard protocol. COMPARISON: No exams were available for comparison FINDINGS: UTERUS: Position: Retroverted. Size: 6.9 long by 3.7 AP by 4.6 transverse cm Endometrium: Up to 1.5 cm. The endometrial stripe is thickened and heterogeneous with small cystic areas seen. Myometrium: There are several uterine fibroids present. The largest is in the fundus on the right and measures 1.6 x 1.6 x 1.4 cm. Some of the fibroids appear calcified. Cervix: Unremarkable. OVARIES: Right: 2.6 x 1.8 cm Cyst or mass: No suspicious cystic or solid masses. There is a 2.4 x 1.4 x 1.8 cm simple cyst on the right ovary. Left: 2.5 x 2.0 x 1.3 cm Cyst or mass: No suspicious cystic or solid masses. DOPPLER: Color: Symmetric and uniform flow to both ovaries. CUL-DE-SAC: Free fluid: None. Other: None. IMPRESSION: 1. Thickened heterogeneous endometrial stripe measuring up to 1.5 cm. This is thickened in a postmenopausal patient. 2. Uterine fibroids. 3. 2.4 cm simple right ovarian cyst. DATA REPOSITORY:
== END ==
LOC: DI 00:11
PROVIDERS: PCP Nurse Practitioner Family; Visit Provider Obstetrics & Gynecology
DX: N95.0 Postmenopausal bleeding (principal); N85.00 Endometrial hyperplasia, unspecified
CPT/HCPCS: 76830; 76856